=== PATIENT | female | born 1975 | race Caucasian/White ===

== ENCOUNTER → 2019-12-11 16:33 | Outpatient (CLI) | payer MEDICAID, SELFPAY ==
--- NOTE | 2019-12-11 | XR_ITS ---
PROCEDURE: XR ANKLE WT BEARING RT MIN 3V CLINICAL INDICATION: R DROPFOOT DEFORMITY, OSTEOARTHRITIS The COMPARISON: XR FOOT WT BEARING RT 3V from 12/11/2019 FINDINGS: No fracture or dislocation. No lytic or blastic change. There is normal mineralization. There are mild hypertrophic changes of the medial malleolus with some accessory ossification along the medial malleolus medially. Mild bony spurring is present at the anterior distal tibia. Small calcaneal spurs noted. There has been prior surgery of the foot with the longitudinal screw at the base of the 5th metatarsal. Prominent osteoarthritic changes are present at the 1st metatarsal tarsal joint. Anterior osteophytes are also present at the navicular cuneiform joint. Other findings:None. IMPRESSION: Degenerative changes as described above. Dictated by: Sav Fong MD 12/12/2019 07:38 Electronically signed by Sav Fong MD in [place] 12/12/2019 07:38
--- NOTE | 2019-12-11 | XR_ITS ---
PROCEDURE: XR ANKLE WT BEARING LT MIN 3V CLINICAL INDICATION: Foot drop COMPARISON: No exams were available for comparison FINDINGS: No fracture or dislocation. No lytic or blastic change. There is normal mineralization. Mildly prominent bony hypertrophic changes are present at the anterior distal tibia with a separate ossification along the joint space at this region anteriorly measuring approximately 3-4 mm and may be due to a loose body. Other findings:Mild prominent bony calcaneal spur. This IMPRESSION: No acute finding. Degenerative changes of the ankle with possible loose body anteriorly Dictated by: Sav Fong MD 12/12/2019 07:35 Electronically signed by Sav Fong MD in [place] 12/12/2019 07:35
--- NOTE | 2019-12-11 16:43 | XR_ITS ---
PROCEDURE: XR CHEST 2V CLINICAL HISTORY: HX OF HIGH BLOOD PRESSURE Preop study for orthopedic surgery. COMPARISON: No exams were available for comparison FINDINGS: No acute bony abnormalities. The cardiomediastinal silhouette and pulmonary vascularity are within normal limits. The lungs are clear without infiltrates, suspicious nodules, or pleural effusions. There is mildly increased thoracic kyphosis. Multilevel mild degenerative thoracic spondylosis. IMPRESSION: 1. No acute findings. Dictated by: Desmond Guevara 12/11/2019 17:08 Electronically signed by Desmond Guevara in [place] 12/11/2019 17:08
--- NOTE | 2019-12-11 17:16 | ECG_ITS ---
APPROVED REPORT Exam: Resting ECG HR:50 bpm ECG Measurements Heart Rate 50 AXES LA 144 P 76 QRSd 86 QRS 46 QT 500 T 42 QTc 455 <Conclusion> Sinus bradycardia Otherwise normal ECG Electronically signed by : Nic Light, 12/16/2019 21:22:33
[2019-12-11 17:26] LABS: Basophils % 0.4 % (0.1-2.0); Eosinophils # 0.2 K/mm3 (0.0-0.4); Eosinophils % 2.6 % (0.1-12.0); Hematocrit 39.7 % (37.0-47.0); Hemoglobin 13.5 g/dL (12.2-16.2); Lymphocytes # 1.9 K/mm3 (0.7-4.5); Lymphocytes % 28.7 % (10-50); Mean Corpuscular HGB Conc 34.2 g/dL (31.8-35.4); Mean Corpuscular Hemoglobin 32.4 pg (27.0-31.2); Mean Corpuscular Volume 94.7 fl (81-99); Mean Platelet Volume 8.2 fl (7.4-10.4); Monocytes # 0.4 K/mm3 (0.1-1.0); Monocytes % 6.1 % (1.7-9.3); Neutrophils # 4.1 K/mm3 (1.8-7.8); Neutrophils % 62.2 % (37.0-80.0); Platelet Count 267 K/mm3 (142-424); Red Blood Count 4.19 M/mm3 (4.20-5.40); Red Cell Distribution Width 13.4 % (11.5-17.5); White Blood Count 6.5 K/mm3 (4.8-10.8)
[2019-12-11 17:53] LABS: INR 0.96 (0.9-1.1); Prothrombin Time 9.9 seconds (9.4-11.8)
[2019-12-11 19:11] LABS: Alanine Aminotransferase 28 U/L (12-78); Albumin Level 4.3 g/dl (3.5-5.0); Albumin/Globulin Ratio 1.5 (1.1-1.8); Alkaline Phosphatase 95 U/L (38-126); Anion Gap 13.3 mEq/L (5-15); Aspartate Amino Transferase 36 U/L (14-36); Bilirubin,Total 0.5 mg/dl (0.2-1.3); Blood Urea Nitrogen 10 mg/dl (7-17); Calcium 9.8 mg/dl (8.4-10.2); Carbon Dioxide 29 mmol/L (22.0-30.0); Chloride 100 mmol/L (98-107); Estimated Glomerular Filt Rate 110 ml/min (>60); GFR (African American) 133 ML/MIN (>60); Globulin 2.8 g/dL (1.3-3.2); Glucose 90 mg/dl (74-100); Potassium 4.3 mmoL/L (3.5-5.1); Sodium 138 mmol/L (136-145); Total Protein,Serum 7.1 g/dl (6.3-8.2)
[2019-12-11 19:17] LABS: C-Reactive Protein 5.8 mg/L (0-4)
[2019-12-11 19:28] LABS: 25-OH Vitamin D, Total 24.9 ng/mL (30-100)
[2019-12-11 22:06] LABS: Erythrocyte Sedimentation Rate 17 mm/hr (0-20)
== END ==
PROVIDERS: Visit Provider Podiatrist
DX: Z01.818 Encounter for other preprocedural examination (principal); M19.071 Primary osteoarthritis, right ankle and foot
CPT/HCPCS: 36415; 71046; 73610; 73630; 80053; 82306; 85025; 85610; 85651; 86140; 93005

== ENCOUNTER → 2020-01-01 14:22 | Outpatient (CLI) | payer MEDICAID, SELFPAY ==
[2020-01-01 15:11] LABS: Basophils % 0.5 % (0.1-2.0); Eosinophils # 0.1 K/mm3 (0.0-0.4); Eosinophils % 1.7 % (0.1-12.0); Hematocrit 42.9 % (37.0-47.0); Lymphocytes # 1.2 K/mm3 (0.7-4.5); Lymphocytes % 19.1 % (10-50); Mean Corpuscular HGB Conc 32.6 g/dL (31.8-35.4); Mean Corpuscular Hemoglobin 30.9 pg (27.0-31.2); Mean Corpuscular Volume 94.7 fl (81-99); Mean Platelet Volume 7.9 fl (7.4-10.4); Monocytes # 0.3 K/mm3 (0.1-1.0); Monocytes % 4.4 % (1.7-9.3); Neutrophils # 4.7 K/mm3 (1.8-7.8); Neutrophils % 74.4 % (37.0-80.0); Platelet Count 314 K/mm3 (142-424); Red Blood Count 4.53 M/mm3 (4.20-5.40); Red Cell Distribution Width 13.4 % (11.5-17.5); White Blood Count 6.3 K/mm3 (4.8-10.8)
[2020-01-01 15:33] LABS: HCG Qualitative, Serum Negative (Negative)
[2020-01-01 15:37] LABS: Alanine Aminotransferase 17 U/L (12-78); Albumin Level 4.4 g/dl (3.5-5.0); Albumin/Globulin Ratio 1.4 (1.1-1.8); Alkaline Phosphatase 105 U/L (38-126); Anion Gap 13.2 mEq/L (5-15); Aspartate Amino Transferase 29 U/L (14-36); Bilirubin,Total 0.5 mg/dl (0.2-1.3); Blood Urea Nitrogen 7 mg/dl (7-17); Calcium 10.2 mg/dl (8.4-10.2); Carbon Dioxide 31 mmol/L (22.0-30.0); Chloride 99 mmol/L (98-107); Erythrocyte Sedimentation Rate 21 mm/hr (0-20); Estimated Glomerular Filt Rate 110 ml/min (>60); GFR (African American) 133 ML/MIN (>60); Globulin 3.2 g/dL (1.3-3.2); Glucose 106 mg/dl (74-100); Potassium 4.2 mmoL/L (3.5-5.1); Sodium 139 mmol/L (136-145); Total Protein,Serum 7.6 g/dl (6.3-8.2)
[2020-01-01 15:42] LABS: C-Reactive Protein 5.5 mg/L (0-4)
[2020-01-01 15:48] LABS: Prothrombin Time 10.3 seconds (9.4-11.8)
[2020-01-01 15:54] LABS: 25-OH Vitamin D, Total 28.9 ng/mL (30-100)
[2020-01-01 17:53] LABS: Coronavirus 19 IgG Antibody Negative (Negative); Coronavirus 19 IgM Antibody Negative (Negative)
== END ==
PROVIDERS: Visit Provider Podiatrist
DX: Z01.818 Encounter for other preprocedural examination (principal); Z20.828 Contact with and (suspected) exposure to other viral communicable diseases
CPT/HCPCS: 36415; 80053; 82306; 84703; 85025; 85610; 85651; 86140; 86328; U0003

== ENCOUNTER 2020-01-02 08:11 | Observation (INO) | payer MEDICAID, SELFPAY ==
[2019-12-31 08:41] VITALS: BMI 33.4
[2020-01-02] VITALS (22 sets, daily range): BP systolic 118–152; BP diastolic 56–85; PULSE 59–89; RESP 16–20; TEMP 36.7–43; O2SAT 96–98
--- NOTE | 2020-01-02 07:29 | HMH.HP ---
*Admission Date: 01/02/20 *Chief complaint: R dropfoot, nerve damage *History of present illness: Ms. Jama is a 44 y/o female who presents for admission today post op right dropfoot reconstruction. She has been medically cleared by her PCP Dr. Yovani tucker in [facility]. Patient will be admitted for pain control, has a history of substance pain (narcotics) abuse. Attends and has permission from Drug Court/Pain doctor for pain mgmt by myself for narcotics post op. She sees Dr. Lia Sarah in [facility]. Patient will need DME, needs crutches and PT evaluation post op. Also recommend RKS. Patient does not smoke and is not on control. We discussed risk of DVT, blood clots and PE. Recommend Lovenox postoperatively x 6 weeks. [facility] History I have reviewed the patient's past medical history: Yes Medical History: Reports:: Anxiety, Depression Denies:: Cancer, Diabetes Mellitus Type 1, Diabetes Mellitus Type 2, Internal Pacemaker, MRSA, Seizures *Have you ever received a pneumonia vaccine?: No *Have you received a flu vaccine this season?: Yes Other Medical History: Reports: Arthritis, Other. Denies: Blood Transfusion Reaction Comment:: Right dropfoot Laterality Cases: Bilateral: Arthroscopy Knee Other Surgeries: Yes: Tubal Ligation, Other. No: Pacemaker Amputation: No Fractures: Yes (R foot) - *Social History Last grade of school completed: High school graduate Smoking Status: Never smoker Alcohol Intake: never Substance Use Type: denies use *Occupational Status:: unemployed Housing: house Household Members: children *Travel in the last 8 weeks: None - Psychiatric History Expresses thoughts of harming self/others: None Pschychiatric History:: Reports:: Anxiety Family Hx:: Hypertension Review of Systems - Review of Systems Review of systems:: pertinent systems reviewed and negative unless documented below - Constitutional Denies chills, Denies fatigue - Eyes Denies blind spots - ENT Reports poor balance - *Cardiovascular Denies chest pain, Denies shortness of breath - *Respiratory Denies cough, Denies shortness of breath - *Gastrointestinal Denies abdominal pain - *Genitourinary Denies abnormal periods - *Musculoskeletal Reports muscle weakness (RLE) - Integumentary/Breasts Denies hair loss, Denies wounds - *Neurologic Reports abnormal walking, Reports tingling/numbness/burning sensations - Endocrine Denies cold intolerance, Denies excessive sweating - Hematologic/Lymphatic Reports easy bruising - Allergic/Immunologic Reports GI upset with certain foods Meds Home Medications Medication Instructions Recorded Confirmed Type buspirone 10 mg tablet 10 mg PO BID 12/11/19 01/02/20 History gabapentin 800 mg tablet 800 mg PO TID PRN 12/11/19 01/02/20 History meloxicam 7.5 mg tablet 7.5 mg PO DAILY 12/11/19 01/02/20 History pantoprazole 40 mg tablet,delayed 40 mg PO DAILY 12/11/19 01/02/20 History release sertraline 50 mg tablet 50 mg PO DAILY 12/11/19 01/02/20 History enoxaparin 40 mg/0.4 mL 40 mg SQ QDAY 20 Days #8 ml 12/12/19 01/02/20 Rx subcutaneous syringe Docusate Sodium [Stool Softener] 100 mg PO DAILYP PRN 01/02/20 01/02/20 History Ergocalciferol (Vitamin D2) 50,000 unit PO WEEKLY 01/02/20 01/02/20 History [Vitamin D2] Ibuprofen 800 mg PO BID PRN 01/02/20 01/02/20 History Ondansetron [Zofran 4mg ODT] 4 mg PO Q6H PRN 01/02/20 01/02/20 History Tizanidine HCl [Zanaflex 4mg 4 mg PO TID PRN 01/02/20 01/02/20 History tab] lamoTRIgine [Lamotrigine] 100 mg PO DAILY 01/02/20 01/02/20 History Allergies Allergy/AdvReac Type Severity Reaction Status Date / Time sulfamethoxazole Allergy Verified 01/02/20 06:29 [From Bactrim] tramadol [From Ultram] Allergy Verified 01/02/20 06:29 trimethoprim [From Bactrim] Allergy Verified 01/02/20 06:29 Exam Vital signs and Labs for Last 24 Hours: Temp Pulse Resp BP Pulse Ox 98.0 F 59 L 1
--- NOTE | 2020-01-02 07:55 | HMH.ANESCL ---
[facility] Anesthesia Checklist - Patient Identification Patient Identification: Arm Band - Structural Data Admitted From: Home Planned Operative Procedure/s: right foot dropfoot reconstruction Consent for Planned Operative Procedure(s) Verified: Yes Verified Documents: Surgical Consent, History and Physical - NPO Status Verified Time NPO: 00:00 - Additional verifications Anesthesia Reactions: No Hx Blood Transfusions: No Blood Transfusion Reaction: No - Airway Assessment C-Spine Mobility Assessed: Yes (mp2) TMJ Mobility Assessed: Yes Dentition: Good Dentition - Neurological Assessment Level of Consciousness: Awake, Alert - Anesthesia Plan Anesthesia Risk discussed: Yes Anesthesia Plan: Verified ASA Class: II Anesthesia Type: General w/block (Talked at length with pt about risks/benefits of nerve block including the fact that there is previous nerve damage involved. Pt verbalizes understanding of risks and elects to proceed with nerve block) [facility] History Medical History: Reports:: Anxiety, Depression, Gastroesophageal Reflux Disease(GERD) Denies:: Cancer, Diabetes Mellitus Type 1, Diabetes Mellitus Type 2, Internal Pacemaker, MRSA, Seizures *Have you ever received a pneumonia vaccine?: No *Have you received a flu vaccine this season?: Yes Other Medical History: Reports: Arthritis, Other. Denies: Blood Transfusion Reaction Anesthesia experience/problems:: nac Laterality Cases: Bilateral: Arthroscopy Knee Other Surgeries: Yes: Cholecystectomy, Tubal Ligation, Other. No: Pacemaker Amputation: No Fractures: Yes (R foot) - *Social History Last grade of school completed: High school graduate Smoking Status: Never smoker Alcohol Intake: never Substance Use Type: denies use *Occupational Status:: unemployed Housing: house Household Members: children *Travel in the last 8 weeks: None - Psychiatric History Expresses thoughts of harming self/others: None Pschychiatric History:: Reports:: Anxiety, Depression Family Hx:: Hypertension
--- NOTE | 2020-01-02 08:32 | HMH.PHAINT ---
MEDICATION RECONCILIATION COMPLETED ON PATIENT USING EXTERNAL FILL HISTORY FROM PHARMACY, NOTE FROM DR. BERNAL, AND AMARJIT REPORT FOR GABAPENTIN/SUBOXONE DOSES. -NICOLE PARKER, KENDELLD
[2020-01-02 13:39] LABS: Microscopic,Cath URINE MICROSCOPIC (MICROSCOPIC)
[2020-01-02 13:59] LABS: Appearance,Urine/Cath CLEAR (Clear); Bilirubin,Cath Negative (Negative); Blood, Urine/Cath Negative (Negative); Color,Urine/Cath YELLOW (Yellow); Glucose,Urine/Cath (UA) Negative (Negative); Ketones,Urine/Cath Negative (Negative); Leukocyte Esterase,Cath Negative (Negative); Nitrate,Cath Negative (Negative); Protein,Urine/Cath Negative (Negative); Specific Gravity, Urine/Cath <= 1.005 (1.005-1.030); Urobilinogen,Cath 0.2 EU/dl (0.2)
[2020-01-02 14:18] LABS: Bacteria,Urine/Cath TRACE /lpf; RBC,Urine/Cath Occasional # /hpf (0-3)
--- NOTE | 2020-01-02 14:32 | XR_ITS ---
PROCEDURE: XR ANKLE RT 2V CLINICAL INDICATION: FUSION COMPARISON: CR XR ANKLE WT BEARING RT MIN 3V from 12/11/2019 FINDINGS: Fluoro time 3 minutes. Multiple images are submitted during the fusion procedure with osteotomy the distal tibia fibula and superior talus. Anterior distal tibia bone plate 2 calcaneal talar screws, metatarsal tarsal clips are placed along with K-wires in the 2nd and 3rd digit. A clip is also present at the proximal aspect of the 1st proximal phalanx. Limited images show good alignment. IMPRESSION: Postsurgical changes with good alignment Dictated by: Sav Fong MD 01/02/2020 15:55 Sav Fong MD in [place] 01/02/2020 15:55
--- NOTE | 2020-01-02 15:54 | P.PN_ITS ---
[facility] Anesthesia Record Part I Intake, IV Amount: 2,500 Estimated blood loss (mL): 30 Urine output (mL): 1,000 Blood Pressure: 129/73 SaO2: 97 Pulse Rate: 74 Respiratory Rate: 16 Temperature: 98.5 F Patient is:: Drowsy, Stable Stable to PACU at:: 15:50
--- NOTE | 2020-01-02 16:00 | XR_ITS ---
PROCEDURE: XR CALCANEUS RT MIN 2V CLINICAL INDICATION: Post op right dropfoot COMPARISON: CR XR ANKLE RT MIN 3V from 01/02/2020 CR XR FOOT RT MIN 3V from 01/02/2020 FINDINGS: Status post fusion of the ankle joint with osteotomy of the talar dome and distal tibia and distal fibula. Anterior bone plate is present at the distal tibia with a curved component at the talus. There are 2 screws within the calcaneus 1 extending into the talus and 1 extending through the talus into the distal tibia region. The screw within the mid aspect of the talus has a zone of lucency around it which is possibly postsurgical. There are 2 large himanshu overlying the 1st metatarsal tarsal junction. There are K-wires within the 2nd and 3rd phalanges. There is a stable also at the proximal aspect of the proximal phalanx of the great toe with a nondisplaced fracture at this area. There is good alignment. There is a longitudinal screw through the base of the 5th metatarsal which was present before the surgery. IMPRESSION: Status post ankle and midfoot fusion as described above Dictated by: Sav Fong MD 01/02/2020 16:55 Sav Fong MD in [place] 01/02/2020 16:55
--- NOTE | 2020-01-02 16:34 | PC.NURSE ---
1600-xray at bedside
--- NOTE | 2020-01-02 17:29 | PC.NURSE ---
PATIENT IS NOT NPO, ENTRY ERROR PER MYSELF. ORDER STOPPED.
--- NOTE | 2020-01-02 17:34 | HMH.OPNOTE ---
Date of procedure: 01/02/20 Pre-op Diagnosis:: 1. Right drop foot deformity 2. Right osteoarthritis ankle and foot 3. Right acquired equinovarus deformity 4. Retained orthopedic hardware 5. Impingement of right ankle joint 6. Right plantarflexed 1st ray 7. Right foot, ankle synovitis 8. Right acquired hammertoes 9. Right hallux interphalangeus 10. Right previous 5th metatarsal fracture ORIF: retained screw 11. Right foot, ankle pain and weakness 12. Calcaneal spur Post-op Diagnosis:: Same Procedure performed:: 1. Right dropfoot reconstruction 2. Right ankle arthrodesis 3. Right subtalar joint arthrodesis 4. Right tendo Achilles lengthening 5. Right peroneal tendon debridement and longus to brevis anastomosis, tendon transfer 5. Right 1st tarsal metatarsal arthrodesis 6. Right soft tissue (posterior capsule) release 7. Right tibialis anterior tendon debridement, split tibialis anterior tendon transfer 8. Right posterior tibial tendon debridement and repair 9. Right ankle and foot synovectomy 10. Right dorsiflexion wedge osteotomy (1st metatarsal DFWO) 11. Right hammertoe repair, PIPJ arthrodesis 2-3 12. Right Arturo osteotomy 13. Right calcaneal autograft harvest 14. Right application of amniotic graft 15. Right application of bone graft 16. Right application of posterior splint Surgeon:: Astrid Rosa DPM Research Interviewer(s):: Tereza Apodaca [employer]:: Rubio Monge Anesthesia: GETA, regional (Right LE pop, saph nerve block) Estimated blood loss (mL): 30 Clinical Note:: Ms. Jama is a 44 y/o female who presents for right dropfoot reconstruction. The patient sustained a work riding accident when she was 12 years old which resulted in damage to the right hip and nerve. Plans were made for her to have a hip replacement but it was recommended she had the ankle and foot fixed prior to the hip surgery. Preoperative imaging reviewed and discussed with the patient. She also underwent a nerve conduction study with Dr. Swapna Dawn 12/24/2019 for surgical planning. After a long discussion with the patient in regards to the conservative versus surgical treatment for dropfoot deformity, the patient has elected to proceed with surgery because they have failed conservative treatment and continue to have pain and worsening symptoms affecting daily activities. The patient has been instructed on the planned procedure, all risk versus benefits of the procedure discussed. These include but are not limited to: bleeding, infection, temporary or permanent nerve and blood vessel damage, need for further surgery, delay in healing of soft tissue or bone, tendon re-rupture, failure of bones to heal, non-union, mal-union, failure of the implant, weakness, muscle atrophy, fractures, prolonged pain and recovery, CRPS/RSD, DVT and anesthetic complications including issues with blood pressure and even . We discussed increased risk of tendon transfer failure, nonunion, delayed union. We discussed possible limb shortening, post op limb, gait changes, need for physical therapy, boot, brace and possible custom brace post operatively. No guarantees were given. All questions fully answered. The patient verbalized understanding and agreed to proceed with surgery. Written consent was obtained. Necessary labs and pre-op testing ordered: CBC, CMP, EKG, CXR, vitamin D. Patient will need DME, recommend RKS. Patient does not smoke and is not on control. We discussed risk of DVT, blood clots and PE. Recommend Lovenox postoperatively x3-6 weeks. We discussed due to the length of surgery and anesthesia she will be admitted 23-hour observation and have PT gait training prior to discharge home. She will need Rx for pain ([place] or Percocet), muscle relaxer prior to d/c home. e-Rx given for Zofran, Motrin, vitamin D, Lovenox on 12/12/19. We discussed in great detail her history of substance abuse and postop pain management. She sees Dr. Lia Sarah in [facility]. Patient has an appointm
--- NOTE | 2020-01-02 18:43 | HMH.HP ---
*Admission Date: 01/02/20 *Chief complaint: Postop right foot drop reconstruction *History of present illness: Ms. Jama is a 44 y/o female who presents for admission today post op right dropfoot reconstruction. She has been medically cleared by her PCP Dr. Yovani tucker in [facility]. Patient will be admitted for pain control, has a history of substance pain (narcotics) abuse. Attends and has permission from Drug Court/Pain doctor for pain mgmt by myself for narcotics post op. She sees Dr. Lia Sarah in [facility]. Patient will need DME, needs crutches and PT evaluation post op. Also recommend RKS. Patient does not smoke and is not on control. We discussed risk of DVT, blood clots and PE. Recommend Lovenox postoperatively x 6 weeks. The above from Dr. Rosa. The patient reports a horse riding accident when she was 12 years old. 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 She plans to have hip surgery but it was felt that she should have reconstruction of the right foot abnormality before her hip was replaced. She underwent hip surgery at the age of 12 at the time of the injury. She is also had foot fractures 3 times and has had arthroscopic surgery of the foot and of the knees. [facility] History I have reviewed the patient's past medical history: Yes Medical History: Reports:: Anxiety, Depression (Her 58-year-old fianc? 6 days ago from complications of CML.), Gastroesophageal Reflux Disease(GERD) Denies:: Cancer, Diabetes Mellitus Type 1, Diabetes Mellitus Type 2, Internal Pacemaker, MRSA, Seizures *Have you ever received a pneumonia vaccine?: No *Have you received a flu vaccine this season?: No Other Medical History: Reports: Arthritis, Other. Denies: Blood Transfusion Reaction Anesthesia experience/problems:: nac Laterality Cases: Bilateral: Arthroscopy Knee Other Surgeries: Yes: Cholecystectomy, Tubal Ligation (1999), Other. No: Pacemaker Amputation: No Fractures: Yes (R foot) - *Social History Last grade of school completed: 11th or 12th Smoking Status: Former smoker (Quit 3 years ago) Tobacco Type: cigarettes Smoking End Date: 2016 Alcohol Intake: never Substance Use Type: denies use, former substance user, opiates, painkillers *Occupational Status:: unemployed Housing: house Household Members: children (19-year-old son 24-year-old daughter 3-year-old grandchild) *Travel in the last 8 weeks: None - Psychiatric History Expresses thoughts of harming self/others: None Pschychiatric History:: Reports:: Anxiety, Depression Family Hx:: Hypertension Review of Systems - Constitutional Denies anorexia, Denies body ache(s), Denies chills - Eyes Denies blurry vision - ENT Denies abnormal hearing, Denies neck lump, Denies neck pain - *Cardiovascular Denies chest pain - *Respiratory Denies chest congestion, Denies cough - *Gastrointestinal Denies abdominal pain - *Genitourinary Denies abnormal vaginal bleeding - *Musculoskeletal Reports abnormal walking, Reports joint pain, Reports back pain (2 bulging disks) - Integumentary/Breasts Denies bleeding lesions, Denies yellowing of the skin, Denies unusual bruising - *Neurologic Reports abnormal walking, Reports unsteadiness, Reports tingling/numbness/burning sensations - Psychiatric Reports depression - Hematologic/Lymphatic Reports easy bruising - Allergic/Immunologic Reports GI upset with certain foods Meds Home Medications Medication Instructions Recorded Confirmed Type buspirone 10 mg tablet 10 mg PO BID 12/11/19 01/02/20 History gabapentin 800 mg tablet 800 mg PO TID PRN 12/11/19 01/02/20 History meloxicam 7.5 mg tablet 7.5 mg PO DAILY 12/11/19 01/02/20 History pantoprazole 40 mg tablet,delayed 40 mg PO DAILY 12/11/19 01/02/20 History release sertraline 50 mg tablet 50 mg PO DAILY 12/11/19 01/02/20 History bup
--- NOTE | 2020-01-02 18:46 | HMH.ANESII ---
[facility] Anesthesia Record Part II Discharge Time: 16:30 Destination: Medical Surgical Department PACU nurse assessment reviewed?: Yes Patient Condition:: Good Anesthesia Complications:: None Swallowing reflex intact?: Yes Cyanosis?: No Blood Pressure: 133/85 Pulse Rate: 68 Temperature: 98.7 F Mental Status: Alert & Oriented Pain level:: 5 (back/hip) Nausea and/or vomitting:: None Intake, IV Amount: 0
--- NOTE | 2020-01-02 20:12 | PC.NURSE ---
Pt states that she is no longer taking suboxone and hasn't for two weeks. Pt is alert and oriented and able to make needs known. Indwelling cath draining to gravity. Dsg to R leg mustapha, L scud in place. Have encouraged elevation.Lungs cta. Have medicated per jul. Family member at bedside and CB in reach.
[2020-01-03 00:30] VITALS: BP 113/70; PULSE 69; RESP 18; TEMP 37.3; O2SAT 95
[2020-01-03 03:31] VITALS: BP 110/52; PULSE 66; RESP 16; TEMP 37.5; O2SAT 99
--- NOTE | 2020-01-03 04:25 | PC.NURSE ---
A&OX4. PT TOLERATING RA WELL T/O SHIFT. PT TURNING IN BED MULTIPLE TIMES T/O SHIFT ON HER OWN. PT HAS C/O LOWER BACK PAIN T/O SHIFT, REQUESTING PRN PAIN MED PER MAR. ON REASSESSMENT, PT RESTS IN BED FOR A WHILE BUT PAIN COMES BACK. PT HAS HAD NO C/O PAIN IN HER R ANKLE. DRESSING PRESENT TO R ANKLE, CDI. ANKLE ELEVATED ON PILLOW T/O SHIFT, POLAR PACK IN PLACE. PT USING IS T/O SHIFT WHILE AWAKE. PT HAS TOLERATED SNACKS WELL. F/C PRESENT DRAINING BRIGHT YELLOW URINE. NO OTHER C/O THUS FAR. VSS WILL CONTINUE TO MONITOR.
[2020-01-03 05:00] VITALS: BMI 34.3
[2020-01-03 06:16] LABS: Eosinophils # 0.1 K/mm3 (0.0-0.4); Eosinophils % 0.7 % (0.1-12.0); Hematocrit 34.7 % (37.0-47.0); Hemoglobin 11.4 g/dL (12.2-16.2); Lymphocytes # 1.2 K/mm3 (0.7-4.5); Lymphocytes % 8.4 % (10-50); Mean Corpuscular HGB Conc 32.9 g/dL (31.8-35.4); Mean Corpuscular Hemoglobin 31.4 pg (27.0-31.2); Mean Corpuscular Volume 95.2 fl (81-99); Mean Platelet Volume 8.1 fl (7.4-10.4); Monocytes # 1.2 K/mm3 (0.1-1.0); Monocytes % 8.4 % (1.7-9.3); Neutrophils # 11.6 K/mm3 (1.8-7.8); Neutrophils % 82.4 % (37.0-80.0); Platelet Count 267 K/mm3 (142-424); Red Blood Count 3.64 M/mm3 (4.20-5.40); Red Cell Distribution Width 13.6 % (11.5-17.5); White Blood Count 14.1 K/mm3 (4.8-10.8)
[2020-01-03 06:24] LABS: Chloride 104 mmol/L (98-107)
[2020-01-03 06:25] LABS: Potassium 3.8 mmoL/L (3.5-5.1); Sodium 139 mmol/L (136-145)
[2020-01-03 06:27] LABS: Alanine Aminotransferase 13 U/L (12-78); Albumin Level 3.5 g/dl (3.5-5.0); Albumin/Globulin Ratio 1.3 (1.1-1.8); Alkaline Phosphatase 60 U/L (38-126); Anion Gap 9.8 mEq/L (5-15); Aspartate Amino Transferase 21 U/L (14-36); Bilirubin,Total 0.4 mg/dl (0.2-1.3); Blood Urea Nitrogen 9 mg/dl (7-17); Carbon Dioxide 29 mmol/L (22.0-30.0); Creatinine Clearance Estimated 198 mL/min (50-200); Estimated Glomerular Filt Rate 110 ml/min (>60); GFR (African American) 133 ML/MIN (>60); Globulin 2.8 g/dL (1.3-3.2); Total Protein,Serum 6.3 g/dl (6.3-8.2)
[2020-01-03 06:28] LABS: Glucose 145 mg/dl (74-100)
--- NOTE | 2020-01-03 06:45 | HMH.DCSUM ---
General - General Admission date:: 01/02/20 Discharge date: 01/03/20 HPI HPI: Ms. Jama is a 44 y/o female who presents for admission today post op right dropfoot reconstruction. She has been medically cleared by her PCP Dr. Yovani tucker in [facility]. Patient will be admitted for pain control, has a history of substance pain (narcotics) abuse. Attends and has permission from Drug Court/Pain doctor for pain mgmt by myself for narcotics post op. She sees Dr. Lia Sarah in [facility]. Patient will need DME, needs crutches and PT evaluation post op. Also recommend RKS. Patient does not smoke and is not on control. We discussed risk of DVT, blood clots and PE. Recommend Lovenox postoperatively x 6 weeks. Hospital Course Hospital Course: Patient had a relatively uneventful postoperative course. This morning she was lying comfortably in bed. She states pain to the right lower extremity controlled. She does report some discomfort in her back from positioning. Patient states feeling is starting to return to the right lower extremity. She denies N/V, F/C, SOB/CP. Plan for a session of PT this am prior to discharge for gait training, dispensing crutches. Recommended a rolling knee scooter as well. Objective Vital signs: Temp Pulse Resp BP Pulse Ox 99.5 F 66 16 110/52 L 99 01/03/20 03:31 01/03/20 03:31 01/03/20 03:31 01/03/20 03:31 01/03/20 03:31 no acute distress, obese - *Routine HEENT Exam Head: Present: normocephalic Eye: Present: EOMI ENT: Present: mucous membranes moist - *Routine Neck Exam Present: supple - *Routine Respiratory Exam Present: accessory muscle use - *Routine Cardiovascular Exam Present: RRR - *Routine Abdominal Exam Present: soft - *Routine Rectal Exam Patient deferred: visual exam - *Routine Exam Patient deferred: external exam - *Routine Extremities Exam Present: pulses intact, normal capillary refill. Absent: calf tenderness - Routine Back/Spine/Pelvis Exam Back/Spine: Present: muscle spasm, pain with rotation - *Routine Skin Exam Present: intact, warm - *Routine Neurological Exam Present: alert, oriented X3, moving all extremities - Routine Psychiatric Exam Present: normal affect - Detailed Lower Extremity Exam Comments: The right lower extremity splint and dressing is clean dry and intact. Capillary fill time within normal limits. Light touch sensation decreased secondary to nerve block. Motor function intact but decreased secondary to nerve block. No calf or thigh pain noted bilaterally. Patient complains of pain with rotation to the lower back, likely positional. Results Labs on day of discharge: Labs from last 24 hours 01/03/20 01/02/20 06:00 07:55 WBC 14.1 H D RBC 3.64 L Hgb 11.4 L Hct 34.7 L MCV 95.2 MCH 31.4 H MCHC 32.9 RDW 13.6 Plt Count 267 MPV 8.1 Neut % (Auto) 82.4 H Lymph % (Auto) 8.4 L [place] % (Auto) 8.4 Eos % (Auto) 0.7 Baso % (Auto) 0.0 L Neut # (Auto) 11.6 H Lymph # (Auto) 1.2 [place] # (Auto) 1.2 H Eos # (Auto) 0.1 Baso # (Auto) 0.0 Urine Color Yellow Urine Appearance Clear Urine pH 6.0 Ur Specific [place] <= 1.005 Urine Protein Negative Urine Glucose (UA) Negative Urine Ketones Negative Urine Blood Negative Urine Nitrate Negative Urine Bilirubin Negative Urine Urobilinogen 0.2 Ur Leukocyte Esterase Negative Urine RBC Occasional Urine WBC 3-5 Ur Squamous Epith Cells 10-20 Urine Bacteria Trace - Additional Comments Post operative x-rays 3 views right ankle, foot and calc axial reviewed. Hardware intact with no evidence of displacement. Adequate reduction of arthritis and dropfoot deformity DS: Diagnosis - Discharge Diagnosis (1) Acquired equinovarus deformity of right foot Status: Chronic (2) Dropfoot Status: Chronic (3) Osteoarthritis of right ankle and foot Status: Chronic
[2020-01-03 06:59] LABS: Calcium 9.1 mg/dl (8.4-10.2)
--- NOTE | 2020-01-03 07:19 | P.CONPHA_ITS ---
[facility] Pharmacy VTE Monitoring - Patient Demographics Admission date: 01/02/20 Report Date: 01/03/20 Time: 07:00 Allergies/Adverse Reactions: Patient Allergies sulfamethoxazole [From Bactrim] Allergy (Verified 01/02/20 06:29) tramadol [From Ultram] Allergy (Verified 01/02/20 06:29) trimethoprim [From Bactrim] Allergy (Verified 01/02/20 06:29) Height: 1.73 m Weight: 102.739 kg Patient Problems: Current Active Problems Acquired equinovarus deformity of right foot (Chronic) Avascular necrosis of bone of right hip (Acute) Arthropathy of right hip (Acute) Reactive depression (situational) (Acute) History of substance abuse (Acute) Nerve damage (Acute) History of foot surgery (Acute) Low back pain (Acute) - VTE Risk Labs: VTE Related Lab Results Hgb 11.4 g/dL (12.2-16.2) L 01/03/20 06:00 Hct 34.7 % (37.0-47.0) L 01/03/20 06:00 Plt Count 267 K/mm3 (142-424) 01/03/20 06:00 BUN 9 mg/dl (7-17) D 01/03/20 06:00 Creatinine 0.60 mg/dl (0.52-1.04) 01/03/20 06:00 Estimated Creat Clear 198 mL/min (50-200) 01/03/20 06:00 Was VTE Risk Assessment Performed: Yes VTE Score: 4 VTE Risk Level: Low Risk Clinical Trial Participant: No - Prophylaxis VTE Prophylaxis Ordered?: Yes Types of VTE Prophylaxis: TEDS Knee High (unaffected leg)
[2020-01-03 07:45] VITALS: BP 127/61; PULSE 56; RESP 17; TEMP 37.2; O2SAT 99
--- NOTE | 2020-01-03 08:54 | PC.NURSE ---
PT @ BS and meds to bed form signed
--- NOTE | 2020-01-03 09:40 | PC.NURSE ---
IV and mayorga discontinued by nursing executive. Instructor is Tereza Smith with [facility]. I completed discharge teaching as well as post op surgery teaching. Pt had question regarding when to start Lovenox injection. Called Dr. Rosa's office and spoke to Shiraz. He collaborated with Dr. Rosa, who reports that pt is to start Lovenox injections today when she gets home. Demonstrated to pt on how in give self injections.
--- NOTE | 2020-01-03 09:50 | HMH.PTEV ---
Physical Therapy Evaluation Rehab PT IP Evaluation Start: 01/02/20 14:50 Freq: ONCE Status: Active Protocol: Document 01/03/20 09:00 PHOWESLEY (Rec: 01/03/20 09:50 PHORNE [id number]) Subjective/History History History 44 yowf adm to [facility] for R foot surgery. She is independent with all mobility and ambulation prior to admit, no stairs at home. Subjective Subjective Pt reports she feels good, R foot remains numb. Rehab PT IP Eval Objective Appearance Patient Behavior Appropriate Patient Orientation Person,Place,Time Difficulty following instructions none Speech Pattern Clear Ambulation Patient Able to Ambulate Yes Ambulation Observation IP General Gait Pattern Observation Decrease Weight Bear (R) Ambulation Distance (feet) 20 Ambulation Assistive Device Axillary Crutches Ambulation Ability Supervision/Stand by Balance Ability to Arise Able, w/o using arms Sitting Balance Steady, safe Standing Balance Narrow stance w/o support Dynamic Sitting Balance Ability Normal Dynamic Standing Balance Ability Normal Transfers Bed Transfer Ability Independent Chair Transfer Ability Independent Sit to Stand Bed Transfer Ability Independent Sit to Stand Chair Transfer Ability Independent ROM All Extremities PT ROM Status WFL Abnormal ROM Comment except R ankle NT MMT All Extremities PT MMT WFL Abnormal MMT Grade except R ankle NT Rehab PT IP prob,goals,plan Problems Date of Evaluation: 01/03/20 Discharge Plan PT Discharge Plan Pt is appropriate to D/C to home with appropriate DME, crutch training performed and pt justus well without difficulty . G -code Required No Eval Complexity Eval Charge Codes 37340 - Moderate Complexity PHYSICIAN CERTIFICATION: I certify the specified therapy services for Monalisa Jama are required, authorized, and reviewed every 30 days.
--- NOTE | 2020-01-03 11:05 | PC.NURSE ---
spoke with Neha in the speciality clinic. Informed her that pt was eager to leave this morning. Pt left hospital at 1017. She did not receive her 3rd dose of IV postop abx that was scheduled at 1400. Neha reports that she will give message to Dr. Rosa.
== END 2020-01-03 10:20 | disposition home or self-care (01) ==
LOC: 2ND 08:12
PROVIDERS: Admitting Provider Podiatrist; PCP Family Medicine; Visit Provider Podiatrist
PROC: (CPT 28008; principal; 2020-01-02 07:30)
DX: M19.071 Primary osteoarthritis, right ankle and foot (principal); M20.41 Other hammer toe(s) (acquired), right foot; M67.01 Short Achilles tendon (acquired), right ankle; M21.371 Foot drop, right foot; M66.174 Rupture of synovium, right foot; M21.171 Varus deformity, not elsewhere classified, right ankle; M21.541 Acquired clubfoot, right foot; Z88.1 Allergy status to other antibiotic agents; Z79.899 Other long term (current) drug therapy
CPT/HCPCS: 28262; 28008; 28285 ×2; C5275; 36415; 73600; 73610; 73630; 73650; 80053; 81001; 85025; 96374; 97162; C1713; C1734; C1762; C1776; G0378; J2405; J2710; Q4211

== ENCOUNTER → 2020-01-29 14:12 | Outpatient (CLI) | payer MEDICAID, SELFPAY ==
--- NOTE | 2020-01-29 14:17 | XR_ITS ---
PROCEDURE: XR ANKLE WT BEARING RT MIN 3V CLINICAL INDICATION: post-op COMPARISON: CR XR ANKLE WT BEARING LT MIN 3V from 12/11/2019 CR XR ANKLE WT BEARING RT MIN 3V from 12/11/2019 CR XR ANKLE RT MIN 3V from 01/02/2020 FINDINGS: There is a cast in place. No change in the prior ankle fusion with anterior bone plate. Status post talocalcaneal fusion with 2 screws from the calcaneus. The most posterior screw extends along the anterior aspect of the distal tibia. IMPRESSION: Good alignment status post ankle joint and subtalar fusion Dictated by: Sav Fong MD 01/29/2020 17:50 Sav Fong MD in [facility] 01/29/2020 17:50
--- NOTE | 2020-01-29 14:17 | XR_ITS ---
PROCEDURE: XR FOOT WT BEARING RT 3V CLINICAL INDICATION: post-op Follow-up surgery COMPARISON: CR XR FOOT WT BEARING RT 3V from 12/11/2019 CR XR FOOT RT MIN 3V from 01/02/2020 FINDINGS: Status post 1st metatarsal tarsal fusion. Longitudinal screw is present in the base of the 5th metatarsal. Status post pinning of the 2nd and 3rd phalanges the. A staple is present along the proximal aspect of the proximal phalanx of the great toe stabilizing a nondisplaced transverse fracture. There are osteoarthritic changes at the cuneiform tarsal junction. Other findings:None. IMPRESSION: Extensive postsurgical changes as described above overall not significantly changed Dictated by: Sav Fong MD 01/29/2020 17:52 Sav Fong MD in [facility] 01/29/2020 17:52
== END ==
PROVIDERS: PCP Family Medicine; Visit Provider Podiatrist
DX: Z98.890 Other specified postprocedural states (principal); M79.671 Pain in right foot; M25.571 Pain in right ankle and joints of right foot
CPT/HCPCS: 73610; 73630

== ENCOUNTER → 2020-02-12 14:17 | Outpatient (CLI) | payer MEDICAID, SELFPAY ==
--- NOTE | 2020-02-12 14:21 | XR_ITS ---
PROCEDURE: XR ANKLE WT BEARING RT MIN 3V CLINICAL INDICATION: post-op Follow-up surgery COMPARISON: CR XR ANKLE WT BEARING LT MIN 3V from 12/11/2019 CR XR ANKLE WT BEARING RT MIN 3V from 12/11/2019 CR XR ANKLE RT MIN 3V from 01/02/2020 CR XR ANKLE WT BEARING RT MIN 3V from 01/29/2020 FINDINGS: The splint has been removed. Status post talocalcaneal fusion. There does not appear to be complete bony fusion at this time. Status post talocalcaneal fusion with incomplete fusion of the joint. One of the calcaneal screws appears to extend into the anterior aspect of the distal tibia. There appears to been a prior osteotomy at the distal aspect of the fibula. IMPRESSION: No change status post ankle and hindfoot fusion as described above with incomplete fusion. Dictated by: Sav Fong MD 02/12/2020 15:08 Sav Fong MD in [facility] 02/12/2020 15:08
--- NOTE | 2020-02-12 14:21 | XR_ITS ---
PROCEDURE: XR FOOT WT BEARING RT 3V CLINICAL INDICATION: post-op COMPARISON: CR XR FOOT WT BEARING RT 3V from 12/11/2019 CR XR FOOT RT MIN 3V from 01/02/2020 CR XR FOOT WT BEARING RT 3V from 01/29/2020 FINDINGS: The cast has been removed. No change in the medial staple at the proximal aspect of the proximal phalanx of the great toe. Status post osteotomy at this area with persistent fracture line. Status post fusion the 1st metatarsal tarsal junction. Pins remain in place at the 2nd and 3rd toes and at the base of the 5th metatarsal. Osteoarthritic changes are present at the cuneiform metatarsal junction and at the talonavicular junction. There is mild soft tissue swelling along the dorsal aspect of the foot. Please see ankle report for ankle and hindfoot finding IMPRESSION: Postsurgical changes which are stable compared to the previous exam Dictated by: Sav Fong MD 02/12/2020 15:10 Sav Fong MD in [facility] 02/12/2020 15:10
== END ==
PROVIDERS: PCP Family Medicine; Visit Provider Podiatrist
DX: Z98.890 Other specified postprocedural states (principal); M21.541 Acquired clubfoot, right foot; M21.371 Foot drop, right foot
CPT/HCPCS: 73610; 73630

== ENCOUNTER → 2020-02-28 13:47 | Outpatient (CLI) | payer MEDICAID, SELFPAY ==
--- NOTE | 2020-02-28 13:51 | XR_ITS ---
PROCEDURE: XR ANKLE WT BEARING RT MIN 3V CLINICAL INDICATION: post-op Follow-up surgery COMPARISON: CR XR ANKLE WT BEARING RT MIN 3V from 12/11/2019 CR XR ANKLE RT MIN 3V from 01/02/2020 CR XR ANKLE WT BEARING RT MIN 3V from 01/29/2020 CR XR FOOT WT BEARING RT 3V from 02/12/2020 CR XR ANKLE WT BEARING RT MIN 3V from 02/12/2020 CR XR FOOT WT BEARING RT 3V from 02/28/2020 FINDINGS: Status post ankle and talocalcaneal fusion. No change in the bony hardware with good alignment. Status post 1st metatarsal tarsal fusion. Status post clip along the osteotomy site of the proximal phalanx of the 1st toe. The pins at the 2nd and 3rd toe been removed. There remains a screw in the proximal aspect of the 5th metatarsal. Bony hypertrophic changes are present at the metatarsal tarsal joint dorsally. There is mild generalized soft tissue swelling. IMPRESSION: No change with good alignment in the extensive postsurgical changes as described above Dictated by: Sav Fong MD 02/28/2020 14:25 Sav Fong MD in [facility] 02/28/2020 14:25
== END ==
PROVIDERS: PCP Family Medicine; Visit Provider Podiatrist
DX: M19.071 Primary osteoarthritis, right ankle and foot (principal); Z98.890 Other specified postprocedural states
CPT/HCPCS: 73610; 73630

== ENCOUNTER → 2020-03-20 13:40 | Outpatient (CLI) | payer MEDICAID, SELFPAY ==
--- NOTE | 2020-03-20 13:44 | XR_ITS ---
PROCEDURE: XR FOOT WT BEARING RT 3V CLINICAL INDICATION: post-op Follow-up surgery COMPARISON: CR XR FOOT RT MIN 3V from 01/02/2020 CR XR FOOT WT BEARING RT 3V from 01/29/2020 CR XR FOOT WT BEARING RT 3V from 02/12/2020 CR XR FOOT WT BEARING RT 3V from 02/28/2020 CR XR ANKLE WT BEARING RT MIN 3V from 02/28/2020 CR XR ANKLE WT BEARING RT MIN 3V from 03/20/2020 FINDINGS: Postsurgical changes as previously described at the proximal 1st phalanx, 1st metatarsal tarsal fusion, curved bone plate along the anterior distal tibia and talar region with fusion of the ankle joint. There is a screw in the tail 0 calcaneal and distal tibia region. There is incomplete bony fusion at the ankle. There has been fusion of the talocalcaneal joint with a screw present. There is pes planus with. There is bony sclerosis at the distal fibula. IMPRESSION: Overall no change in the postsurgical changes of the foot and ankle as described above Dictated by: Sav Fong MD 03/20/2020 15:25 Sav Fong MD in [facility] 03/20/2020 15:25
== END ==
PROVIDERS: PCP Family Medicine; Visit Provider Podiatrist
DX: Z98.890 Other specified postprocedural states (principal); M21.541 Acquired clubfoot, right foot; M21.371 Foot drop, right foot
CPT/HCPCS: 73610; 73630

== ENCOUNTER → 2020-07-22 16:05 | Outpatient (CLI) | payer MEDICAID, SELFPAY ==
--- NOTE | 2020-07-22 16:09 | XR_ITS ---
PROCEDURE: XR ANKLE WT BEARING RT MIN 3V CLINICAL INDICATION: postop, pain Follow-up surgery COMPARISON: CR XR ANKLE WT BEARING RT MIN 3V from 01/29/2020 CR XR ANKLE WT BEARING RT MIN 3V from 02/12/2020 CR XR ANKLE WT BEARING RT MIN 3V from 02/28/2020 CR XR FOOT WT BEARING RT 3V from 03/20/2020 CR XR ANKLE WT BEARING RT MIN 3V from 03/20/2020 CR XR FOOT WT BEARING RT 3V from 07/22/2020 FINDINGS: Postsurgical changes with anterior bone plate at the distal tibia and talus. Prior talocalcaneal fusion.. There is a zone of lucency around the screws within the talus and calcaneus and may be slightly more prominent. The screw from the calcaneus extends into the talus and into the distal tibia. The joint space is still visible. There does appear to be incomplete fusion of the posterior subtalar joint. There has been prior osteotomy at the distal fibula. There appears to be cortical collapse of the talar dome. There are osteoarthritic changes of the talonavicular joint and navicular cuneiform joint. Prior 1st metatarsal tarsal fusion with 2 large medial himanshu. Joint space does not appear fused. A medial staple is also present stabilizing osteotomy at the proximal aspect of the proximal phalanx of the great toe. There is a longitudinal screw in the 5th metatarsal base. Osteoarthritic changes are present at the calcaneocuboid joint IMPRESSION: Extensive postsurgical changes as described above with osteoarthritis. Prominent zone of lucency noted at the talocalcaneal/tibial screws which could be due to loosening or infection. Cortical collapse of the talar dome with incomplete fusion of the posterior subtalar joint and 1st metatarsal tarsal joint Dictated by: Sav Fong MD 07/22/2020 17:32 Sav Fong MD in [facility] 07/22/2020 17:32
== END ==
PROVIDERS: PCP Family Medicine; Visit Provider Podiatrist
DX: Z98.890 Other specified postprocedural states (principal); M79.671 Pain in right foot
CPT/HCPCS: 73610; 73630

== ENCOUNTER → 2020-08-08 12:40 | Outpatient (CLI) | payer MEDICAID, SELFPAY ==
--- NOTE | 2020-08-08 12:40 | CT_ITS ---
PROCEDURE: CT ANKLE RT WO CON CT FOOT WITHOUT CONTRAST CLINICAL HISTORY: POSTOP PAIN, NON-UNION Right foot/ankle surgery-December 2019 Foot/ankle/lower leg pain and swelling since surgery. Prior x-rays on pacs. COMPARISON: CR XR ANKLE WT BEARING RT MIN 3V from 07/22/2020 CR XR FOOT WT BEARING RT 3V from 07/22/[address] FOOT RT WO CON from 08/08/2020 TECHNIQUE: Axial images obtained with sagittal and coronal reformats. All CT scans at the facility use one or more dose reduction, viz: automated exposure control, ma/kV adjustment per patient size (including targeted exams where dose is matched to indication, i.e. head), or iterative reconstruction technique. FINDINGS: There has been extensive foot and ankle surgery. There is an anterior bone plate at the distal tibia. The distal most aspect of the bone plate curved along the superior aspect of the talus. Screws within the bone plate appear intact with no evidence of loosening. There is bony fusion of the tibiotalar joint. There are 2 lag screws within the calcaneus which extend from the posterior and inferior aspect of the calcaneus in an oblique nature cephalad to the distal tibia and talus. There is a prominent zone of lucency around both of the screws within the distal tibia and within the talus laterally with bony fragmentation and bony debris about the distal aspect of the screws. The screw which extends into the talus area actually appears to extend into the joint space of the talocalcaneal area laterally. There is nonunion of the talocalcaneal joint. Bony fragmentation is present along the lateral aspect of the distal tibia. There is an old fracture of the distal fibula with nonunion. There is extensive soft tissue swelling about the foot and ankle greater along the lateral aspect. A longitudinal screw is present within the base of the 5th metatarsal. There are 2 large himanshu between the 1st tarsal metatarsal junction. That joint does not appear to be fused. There is an additional small staple at the proximal aspect of the proximal phalanx of the great toe. No acute fracture or dislocation. IMPRESSION: Status post ankle joint and talocalcaneal fusion. The ankle joint does appear to be fused by the anterior bone plate at the tibial talar region. There is non bony fusion of the talocalcaneal joint with prominent zone of lucency along the distal aspect of the lag screws within the distal tibia and distal talocalcaneal region. Bony fragmentation is also present at these regions with extensive soft tissue swelling. No localized fluid collections are identified. Underlying infection is considered. There is a old distal fibular fracture with nonunion. Postsurgical changes of the foot. There is non bony union of the 1st metatarsal tarsal joint. Dictated by: Sav Fong MD 08/09/2020 06:37 Sav Fong MD in [facility] 08/09/2020 06:37
--- NOTE | 2020-08-08 12:40 | CT_ITS ---
PROCEDURE: CT FOOT RT WO CON CLINICAL HISTORY: POSTOP PAIN, NON-UNION Right foot/ankle surgery-Dec 2019 Foot/ankle/lower leg pain and swelling since surgery prior x-rays on pacs COMPARISON: CT CT ANKLE RT WO CON from 08/08/2020 TECHNIQUE: Axial images obtained with sagittal and coronal reformats. All CT scans at the facility use one or more dose reduction, viz: automated exposure control, ma/kV adjustment per patient size (including targeted exams where dose is matched to indication, i.e. head), or iterative reconstruction technique. FINDINGS: FINDINGS: There has been extensive foot and ankle surgery. There is an anterior bone plate at the distal tibia. The distal most aspect of the bone plate curved along the superior aspect of the talus. Screws within the bone plate appear intact with no evidence of loosening. There is bony fusion of the tibiotalar joint. There are 2 lag screws within the calcaneus which extend from the posterior and inferior aspect of the calcaneus in an oblique nature cephalad to the distal tibia and talus. There is a prominent zone of lucency around both of the screws within the distal tibia and within the talus laterally with bony fragmentation and bony debris about the distal aspect of the screws. The screw which extends into the talus area actually appears to extend into the joint space of the talocalcaneal area laterally. There is nonunion of the talocalcaneal joint. Bony fragmentation is present along the lateral aspect of the distal tibia. There is an old fracture of the distal fibula with nonunion. There is extensive soft tissue swelling about the foot and ankle greater along the lateral aspect. A longitudinal screw is present within the base of the 5th metatarsal. There are 2 large himanshu between the 1st tarsal metatarsal junction. That joint does not appear to be fused. There is an additional small staple at the proximal aspect of the proximal phalanx of the great toe. No acute fracture or dislocation. IMPRESSION: Status post ankle joint and talocalcaneal fusion. The ankle joint does appear to be fused by the anterior bone plate at the tibial talar region. There is non bony fusion of the talocalcaneal joint with prominent zone of lucency along the distal aspect of the lag screws within the distal tibia and distal talocalcaneal region. Bony fragmentation is also present at these regions with extensive soft tissue swelling. No localized fluid collections are identified. Underlying infection is considered. There is a old distal fibular fracture with nonunion. Loosening of the lag screws distally is also considered regarding the prominent zone of lucency at the distal tibia talus. Postsurgical changes of the foot. There is non bony union of the 1st metatarsal tarsal joint. Dictated by: Sav Fong MD 08/09/2020 06:44 Sav Fong MD in [facility] 08/09/2020 06:44
== END ==
PROVIDERS: PCP Family Medicine; Visit Provider Podiatrist
DX: M96.0 Pseudarthrosis after fusion or arthrodesis (principal); T84.9XXA Unspecified complication of internal orthopedic prosthetic device, implant and graft, initial encounter; Z98.890 Other specified postprocedural states
CPT/HCPCS: 73700

== ENCOUNTER → 2020-08-08 13:23 | Outpatient (CLI) | payer MEDICAID, SELFPAY ==
[2020-08-08 13:39] LABS: Basophils % 0.5 % (0.1-2.0); Eosinophils # 0.1 K/mm3 (0.0-0.4); Eosinophils % 2.2 % (0.1-12.0); Hematocrit 43.5 % (37.0-47.0); Hemoglobin 14.1 g/dL (12.2-16.2); Lymphocytes # 1.9 K/mm3 (0.7-4.5); Lymphocytes % 34.4 % (10-50); Mean Corpuscular HGB Conc 32.4 g/dL (31.8-35.4); Mean Corpuscular Hemoglobin 28.4 pg (27.0-31.2); Mean Corpuscular Volume 87.8 fl (81-99); Mean Platelet Volume 8.5 fl (7.4-10.4); Monocytes # 0.4 K/mm3 (0.1-1.0); Monocytes % 7.4 % (1.7-9.3); Neutrophils # 3.1 K/mm3 (1.8-7.8); Neutrophils % 55.6 % (37.0-80.0); Platelet Count 252 K/mm3 (142-424); Red Blood Count 4.95 M/mm3 (4.20-5.40); Red Cell Distribution Width 13.9 % (11.5-17.5); White Blood Count 5.6 K/mm3 (4.8-10.8)
[2020-08-08 14:09] LABS: Chloride 104 mmol/L (98-107); Potassium 3.9 mmoL/L (3.5-5.1); Sodium 140 mmol/L (136-145)
[2020-08-08 14:12] LABS: Alanine Aminotransferase 12 U/L (12-78); Albumin Level 4.6 g/dl (3.5-5.0); Albumin/Globulin Ratio 1.5 (1.1-1.8); Alkaline Phosphatase 96 U/L (38-126); Anion Gap 9.9 mEq/L (5-15); Aspartate Amino Transferase 26 U/L (14-36); Bilirubin,Total 0.9 mg/dl (0.2-1.3); Blood Urea Nitrogen 8 mg/dl (7-17); Carbon Dioxide 30 mmol/L (22.0-30.0); Estimated Glomerular Filt Rate 109 ml/min (>60); GFR (African American) 132 ML/MIN (>60); Total Protein,Serum 7.6 g/dl (6.3-8.2)
[2020-08-08 14:13] LABS: Calcium 9.9 mg/dl (8.4-10.2); Glucose 97 mg/dl (74-100)
[2020-08-08 14:18] LABS: C-Reactive Protein 5.6 mg/L (0-4)
[2020-08-08 14:20] LABS: Erythrocyte Sedimentation Rate 9 mm/hr (0-20)
[2020-08-16 14:49] LABS: 1,25 Dihydroxy Vitamin D 50 pg/mL (.); 1,25-Dihydroxy, Vitamin D-2 28 pg/mL (.); 1,25-Dihydroxy, Vitamin D-3 22 pg/mL (.)
== END ==
PROVIDERS: Visit Provider Podiatrist
DX: Z98.890 Other specified postprocedural states (principal); E55.9 Vitamin D deficiency, unspecified
CPT/HCPCS: 36415; 80053; 82652; 85025; 85651; 86140

== ENCOUNTER → 2020-09-08 10:33 | Outpatient (CLI) | payer MEDICAID, SELFPAY ==
--- NOTE | 2020-09-08 10:52 | ECG_ITS ---
APPROVED REPORT Exam: Resting ECG HR:48 bpm ECG Measurements Heart Rate 48 AXES NV 126 P 62 QRSd 86 QRS 70 QT 482 T 78 QTc 430 Conclusion Marked sinus bradycardia Abnormal ECG Electronically signed by : Nic Light, 09/08/2020 18:04:29
[2020-09-08 11:04] LABS: Basophils # 0.1 K/mm3 (0-0.2); Eosinophils # 0.2 K/mm3 (0.0-0.4); Eosinophils % 3.6 % (0.1-12.0); Hematocrit 43.6 % (37.0-47.0); Lymphocytes # 1.8 K/mm3 (0.7-4.5); Lymphocytes % 30.2 % (10-50); Mean Corpuscular HGB Conc 32.1 g/dL (31.8-35.4); Mean Corpuscular Hemoglobin 28.3 pg (27.0-31.2); Mean Corpuscular Volume 88.3 fl (81-99); Mean Platelet Volume 8.4 fl (7.4-10.4); Monocytes # 0.5 K/mm3 (0.1-1.0); Monocytes % 7.9 % (1.7-9.3); Neutrophils # 3.3 K/mm3 (1.8-7.8); Neutrophils % 57.3 % (37.0-80.0); Platelet Count 304 K/mm3 (142-424); Red Blood Count 4.94 M/mm3 (4.20-5.40); White Blood Count 5.8 K/mm3 (4.8-10.8)
[2020-09-08 11:42] LABS: Chloride 100 mmol/L (98-107)
[2020-09-08 11:43] LABS: Potassium 4.2 mmoL/L (3.5-5.1); Sodium 138 mmol/L (136-145)
[2020-09-08 11:45] LABS: Alanine Aminotransferase 11 U/L (12-78); Aspartate Amino Transferase 22 U/L (14-36); Blood Urea Nitrogen 11 mg/dl (7-17); Estimated Glomerular Filt Rate 109 ml/min (>60); GFR (African American) 132 ML/MIN (>60)
[2020-09-08 11:46] LABS: Albumin Level 4.7 g/dl (3.5-5.0); Albumin/Globulin Ratio 1.6 (1.1-1.8); Alkaline Phosphatase 84 U/L (38-126); Anion Gap 11.2 mEq/L (5-15); Bilirubin,Total 0.6 mg/dl (0.2-1.3); Calcium 10.1 mg/dl (8.4-10.2); Carbon Dioxide 31 mmol/L (22.0-30.0); Globulin 2.9 g/dL (1.3-3.2); Glucose 105 mg/dl (74-100); Total Protein,Serum 7.6 g/dl (6.3-8.2)
[2020-09-08 11:52] LABS: C-Reactive Protein 3.6 mg/L (0-4)
[2020-09-08 11:54] LABS: Erythrocyte Sedimentation Rate 7 mm/hr (0-20)
[2020-09-08 12:04] LABS: Coronavirus 19 IgG Antibody Negative (Negative); Coronavirus 19 IgM Antibody Negative (Negative)
== END ==
PROVIDERS: Visit Provider Podiatrist
DX: Z01.818 Encounter for other preprocedural examination (principal); Z11.52 Encounter for screening for COVID-19
CPT/HCPCS: 36415; 80053; 85025; 85651; 86140; 86328; 93005

== ENCOUNTER 2020-09-10 07:40 | Observation (INO) | payer MEDICAID, SELFPAY ==
[2020-09-09 09:45] VITALS: BMI 30.4
[2020-09-10] VITALS (18 sets, daily range): BP systolic 115–166; BP diastolic 46–109; PULSE 54–78; RESP 14–18; TEMP 36.2–42.7; O2SAT 95–100; BMI 34.2
[2020-09-10 07:05] LABS: Urine Pregnancy, HCG Qual. Negative (Negative)
--- NOTE | 2020-09-10 07:38 | P.PN_ITS ---
[facility] Anesthesia Checklist - Patient Identification Patient Identification: Arm Band - Structural Data Admitted From: Home Planned Operative Procedure/s: Podiatry Consent for Planned Operative Procedure(s) Verified: Yes - NPO Status Verified Time NPO: 00:00 - Chart Verification Results Verified: HCG - Additional verifications Anesthesia Reactions: No Hx Blood Transfusions: No Blood Transfusion Reaction: No - Airway Assessment C-Spine Mobility Assessed: Yes TMJ Mobility Assessed: Yes Dentition: Good Dentition - Neurological Assessment Level of Consciousness: Awake, Alert Hx Seizures: No Numbness or tingling in extremities: Yes - Anesthesia Plan Anesthesia Risk discussed: Yes Anesthesia Plan: Verified ASA Class: II Anesthesia Type: General w/block [facility] History I have reviewed the patient's past medical history: Yes Medical History: Reports:: Anxiety, Depression, Gastroesophageal Reflux Disease(GERD) Denies:: Cancer, Diabetes Mellitus Type 1, Diabetes Mellitus Type 2, Internal Pacemaker, MRSA, Seizures *Have you ever received a pneumonia vaccine?: No *Have you received a flu vaccine this season?: No Other Medical History: Reports: Arthritis, Other. Denies: Blood Transfusion Reaction Anesthesia experience/problems:: Combativeness upon awakening Laterality Cases: Bilateral: Arthroscopy Knee Other Surgeries: Yes: Cholecystectomy, Tubal Ligation, Other. No: Pacemaker Amputation: No Fractures: Yes (R foot x2) - *Social History Last grade of school completed: High school graduate Smoking Status: Former smoker Tobacco Type: cigarettes Alcohol Intake: never Alcohol Intake Frequency:: holidays/special occasions only Substance Use Type: denies use, former substance user, opiates, painkillers *Occupational Status:: unemployed Housing: house Household Members: none *Travel in the last 8 weeks: None - Psychiatric History Pschychiatric History:: Reports:: Anxiety, Depression Family Hx:: Hypertension
--- NOTE | 2020-09-10 08:37 | SUR.OPER ---
0815 [facility] updated
--- NOTE | 2020-09-10 09:19 | SUR.OPER ---
family updated, surgery making progress, no complications
[2020-09-10 09:23] LABS: Adenovirus,PCR Not Detected (NotDetected); Bordetella Pertussis Not Detected (NotDetected); Chlamydophila Pneumoniae, PCR Not Detected (NotDetected); Coronavirus 19, PCR Not Detected (NotDetected); Coronavirus 229E Not Detected (NotDetected); Coronavirus NL63 Not Detected (NotDetected); Coronavirus OC43 Not Detected (NotDetected); Coronovirus HKU1,PCR Not Detected (NotDetected); Human Metapneumovirus Not Detected (NotDetected); Influenza A, PCR Not Detected (NotDetected); Influenza AH1, 2009 Not Detected (NotDetected); Influenza AH1, PCR Not Detected (NotDetected); Influenza AH3,PCR Not Detected (NotDetected); Influenza B, PCR Not Detected (NotDetected); Mycoplasma Pneumoniae, PCR Not Detected (NotDetected); Parainfluenza 1, PCR Not Detected (NotDetected); Parainfluenza 2, PCR Not Detected (NotDetected); Parainfluenza 3, PCR Not Detected (NotDetected); Parainfluenza 4, PCR Not Detected (NotDetected); Respiratory Syncytial Virus Not Detected (NotDetected); Rhinovirus/Enterovirus Not Detected (NotDetected)
--- NOTE | 2020-09-10 10:02 | XR_ITS ---
PROCEDURE: XR ANKLE RT MIN 3V CLINICAL INDICATION: surgery Follow-up surgery COMPARISON: CR XR ANKLE WT BEARING RT MIN 3V from 02/12/2020 CR XR ANKLE WT BEARING RT MIN 3V from 02/28/2020 CR XR ANKLE WT BEARING RT MIN 3V from 03/20/2020 CR XR ANKLE WT BEARING RT MIN 3V from 07/22/2020 CR XR CALCANEUS RT MIN 2V from 09/10/2020 FINDINGS: There has been revision of the talocalcaneal arthrodesis now with 2 screws present with good alignment. The screws are present from the posterior aspect of the calcaneus directed obliquely to the mid and distal talar region. The anterior tibial talar bone plate remains in place. Medial bone plate is present at the medial cuneiform/1st metatarsal region with interval removal of the 2 himanshu. There is a posterior splint in place. Other findings:None. IMPRESSION: Postsurgical changes present as described Dictated by: Sav Fong MD 09/10/2020 14:13 Sav Fong MD in [place] 09/10/2020 14:13
--- NOTE | 2020-09-10 10:20 | HMH.PHAINT ---
MEDICATION RECONCILIATION COMPLETED USING EXTERNAL FILL HISTORY AND PHYSICIAN OFFICE NOTE
--- NOTE | 2020-09-10 12:32 | SUR.OPER ---
1214-updated family in waiting rm
--- NOTE | 2020-09-10 12:35 | SUR.OPER ---
1200- family updated, last procedure in progress, patient doing well
--- NOTE | 2020-09-10 13:24 | XR_ITS ---
PROCEDURE: XR FOOT RT 2V CLINICAL INDICATION: C ARM IN OR Subtalar arthrodesis COMPARISON: CR XR FOOT WT BEARING RT 3V from 02/12/2020 CR XR FOOT WT BEARING RT 3V from 02/28/2020 CR XR FOOT WT BEARING RT 3V from 03/20/2020 CR XR FOOT WT BEARING RT 3V from 07/22/2020 FINDINGS: Fluoroscopy time: 7 minutes and 20 seconds. Multiple images are submitted during the procedure. There has been placement a bone plate at the medial cuneiform and 1st metatarsal and 2 new screws within the talocalcaneal region. Other findings:None. IMPRESSION: Status post revision subtalar arthrodesis and 1st metatarsal tarsal bone plate placement with C-arm guidance. Dictated by: Sav Fong MD 09/10/2020 14:00 Sav Fong MD in [place] 09/10/2020 14:00
--- NOTE | 2020-09-10 13:25 | P.PN_ITS ---
[facility] Anesthesia Record Part I Intake, IV Amount: 800 Estimated blood loss (mL): 40 Urine output (mL): 1,100 Blood Pressure: 120/73 SaO2: 99 Pulse Rate: 73 Respiratory Rate: 14 Temperature: 97.1 F Patient is:: Awake Stable to PACU at:: 13:24
[2020-09-10 13:39] LABS: Microscopic,Cath URINE MICROSCOPIC (MICROSCOPIC)
--- NOTE | 2020-09-10 13:48 | HMH.HPDC ---
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 She underwent surgical reconstruction 01/02/2020. Patient had a relatively uneventful postoperative course with no infection or wound complication. Given the increase, CT scans were obtained to evaluate for nonunion. Labs were also done to evaluate for infection although she did not have any wound healing complications and presents with no obvious signs of clinical infection. X-rays and CT scans were reviewed and discussed with the patient. X-rays show cortical collapse of talar dome, incomplete STJ fusion and CT shows nonunion of the talocalcaneal joint with prominent zone of lucency along the distal aspect of the lag screws within the distal tibia and distal talocalcaneal region. Bony fragmentation is also present at these regions with extensive soft tissue swelling. No localized fluid collections are identified. Underlying infection is considered. There is a old distal fibular fracture with nonunion. Loosening of the lag screws distally is also considered regarding the prominent zone of lucency at the distal tibia talus. Postsurgical changes of the foot. There is non bony union of the 1st metatarsal tarsal joint. The ankle joint does appear to be fused by the anterior bone plate at the tibial talar region. Patient did get the bone stimulator and is using it 3 hours daily as recommended. Conservative treatment discussed but not recommended. We discussed surgery to revise the nonunion. Medical clearance granted by PCP, Dr. Yovani Saenz. Patient currently attends the Suboxone clinic under the direction of Dr. Samayoa. Patient states that that she discussed stopping the Suboxone with Dr. Morel and resuming narcotic medication for chronic pain control. I explained to the patient that I do not manage long-term pain. We discussed in detail tolerance and addiction. Given the patient's history for substance abuse and Suboxone usage, will discuss plan of care with the pain clinic in [place], [place]. Initial postoperative pain control narcotic prescriptions given by myself after discussion and clearance with the clinic. She held the Suboxone for a week. We discussed in detail difficulty with postoperative pain control. She has chronic long-term pain issues. Her PCP did refer her to a pain management doctor, Dr. Anil Vallejo (phone: [phone]), who she saw 09/05/20. Labs. 08/08/20: wbc 5.6, esr 9, crp 5.6, glucose 97, vitamin D2 28, vitamin D3 22. Necessary labs and pre-op testing ordered: CBC, BMP, EKG, covid. e-Rx Zofran, Motrin, Flexeril, has the lovenox. Patient has crutches and walker at home. [facility] History I have reviewed the patient's past medical history: Yes Medical History: Reports:: Anxiety, Depression, Gastroesophageal Reflux Disease(GERD) Denies:: Cancer, Diabetes Mellitus Type 1, Diabetes Mellitus Type 2, Internal Pacemaker, MRSA, Seizures *Have you ever received a pneumonia vaccine?: No *Have you received a flu vaccine this season?: No Other Medical History: Reports: Arthritis, Other. Denies: Blood Transfusion Reaction Anesthesia experience/problems:: Combativeness upon awakening Laterality Cases: Bilateral: Arthroscopy Knee Other Surgeries: Yes: Cholecystectomy, Tubal Ligation, Other. No: Pacemaker Amputation: No Fractures: Yes (R foot x2) - *Social History Last grade of school completed: High school graduate Smoking Status: Former smoker Tobacco Type: cigarettes Alcohol Intake: never Alcohol Intake Frequency:: holidays/special occasions only Substance Use Type: denies use, former substance user, opiates, painkillers *Occupational Status:: unemployed Housing: house Household Members: none *Travel in the last 8 weeks: None - Psychiatric History [facility]
--- NOTE | 2020-09-10 13:49 | HMH.OPNOTE ---
Date of procedure: 09/10/20 Pre-op Diagnosis:: 1. Right nonunion of subtalar arthrodesis 2. Right foot Charcot neuroarthropathy 3. Failure of joint fusion 4. Right foot drop 5. Lymphedema of right lower extremity 6. Retained orthopedic hardware 7. Acquired equinovarus deformity of right foot 8. Scar 9. Vitamin D deficiency 10. Obesity, Class I, BMI 30-34.9 Post-op Diagnosis:: Same Procedure performed:: 1. Right subtalar joint nonunion resection and revision of arthrodesis 2. Right tarsal metatarsal joint nonunion resection and revision of arthrodesis 3. Right foot hardware removal 4. Right application of bone/tissue graft 5. Right foot synovectomy 6. Right foot excision of scar tissue, 1st MPJ release and medial capsulorrhaphy 7. 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 She underwent surgical reconstruction 01/02/2020. Patient had a relatively uneventful postoperative course with no infection or wound complication. She had been attending PT at [facility] with Aj Cook. She initially reported improvement with strength and balance. Over the last few months she has regressed and the swelling and pain has become worse. Given the increase, CT scans were obtained to evaluate for nonunion. Labs were also done to evaluate for infection although she did not have any wound healing complications and presents with no obvious signs of clinical infection. X-rays and CT scans were reviewed and discussed with the patient. X-rays show cortical collapse of talar dome, incomplete STJ fusion and CT shows nonunion of the talocalcaneal joint with prominent zone of lucency along the distal aspect of the lag screws within the distal tibia and distal talocalcaneal region. Bony fragmentation is also present at these regions with extensive soft tissue swelling. No localized fluid collections are identified. Underlying infection is considered. There is a old distal fibular fracture with nonunion. Loosening of the lag screws distally is also considered regarding the prominent zone of lucency at the distal tibia talus. Postsurgical changes of the foot. There is non bony union of the 1st metatarsal tarsal joint. The ankle joint does appear to be fused by the anterior bone plate at the tibial talar region. Patient did get the bone stimulator and is using it 3 hours daily as recommended. Conservative treatment discussed but not recommended. We discussed surgery to revise the nonunion. All risks and benefits were discussed including but not limited to: damage to blood vessels and nerves, bleeding, infection, wound complications, delayed, mal or non-union of bone, post-traumatic arthritis, need for further surgery, implant failure, need for removal of implant, prolonged or permanent swelling of the extremity, prolonged or permanent pain or deformity, CRPS/RSD, DVT/PE, and anesthetic complications including . No guarantees were given. All questions fully answered. The patient verbalized understanding and agreed to proceed with surgery. Consent was obtained. Medical clearance granted by PCP, Dr. Yovani Saenz. Patient currently attends the Suboxone clinic under the direction of Dr. Samayoa. Patient states that that she discussed stopping the Suboxone with Dr. Morel and resuming narcotic medication for chronic pain control. I explained to the patient that I do not manage long-term pain. We discussed in detail tolerance and addiction. Given the patient's history for substance abuse and Suboxone usage, will discuss plan of care with the pain clinic in [place], [place]. Initial postoperative pain control narcotic prescriptions given by myself after disc
[2020-09-10 14:16] LABS: Appearance,Urine/Cath CLEAR (Clear); Bilirubin,Cath Negative (Negative); Blood, Urine/Cath Negative (Negative); Color,Urine/Cath YELLOW (Yellow); Glucose,Urine/Cath (UA) Negative (Negative); Ketones,Urine/Cath Negative (Negative); Leukocyte Esterase,Cath Negative (Negative); Nitrate,Cath Negative (Negative); PH,Urine/Cath 6.5 (5.0-8.5); Protein,Urine/Cath Negative (Negative); Specific Gravity, Urine/Cath 1.015 (1.005-1.030)
[2020-09-10 14:24] LABS: RBC,Urine/Cath Occasional # /hpf (0-3); Squamous Epithelial Ur./Cath Occasional #/hpf (0-5); WBC,Urine/Cath Occasional #/hpf (0-3)
--- NOTE | 2020-09-10 16:43 | PC.NURSE ---
since arrival to floor patient has done okay. some chronic pain noted in back and hips. medicated with dilauded upon admission to floor. noted feeling started to return to feet. especially in big toe. medicated with oxycodone. no other complaints. vitals stable. rings out as needed. ice pack applied. scuds pump on
[2020-09-11] VITALS: BP 126/77; PULSE 60; RESP 16; TEMP 37.3; O2SAT 95
[2020-09-11 04:00] VITALS: BP 127/75; PULSE 54; RESP 16; TEMP 36.9; O2SAT 96
--- NOTE | 2020-09-11 05:00 | PC.NURSE ---
shift summary pts lung sounds are clear with sats maintained 95% or above on room air with a rate ranging from 16-18. pt is alert and oriented X4. pt has only complained of pain one time during shift that required pain meds other then scheduled meds which relieved pts pain. pt denies any nausea, vomiting, or diarrhea.
[2020-09-11 06:00] VITALS: BMI 34.1
[2020-09-11 06:47] LABS: Basophils % 0.5 % (0.1-2.0); Eosinophils # 0.1 K/mm3 (0.0-0.4); Eosinophils % 1.1 % (0.1-12.0); Hematocrit 39.1 % (37.0-47.0); Hemoglobin 12.2 g/dL (12.2-16.2); Lymphocytes # 1.6 K/mm3 (0.7-4.5); Lymphocytes % 24.6 % (10-50); Mean Corpuscular HGB Conc 31.3 g/dL (31.8-35.4); Mean Corpuscular Hemoglobin 27.7 pg (27.0-31.2); Mean Corpuscular Volume 88.4 fl (81-99); Mean Platelet Volume 8.5 fl (7.4-10.4); Monocytes # 0.6 K/mm3 (0.1-1.0); Monocytes % 8.4 % (1.7-9.3); Neutrophils # 4.4 K/mm3 (1.8-7.8); Neutrophils % 65.4 % (37.0-80.0); Platelet Count 221 K/mm3 (142-424); Red Blood Count 4.42 M/mm3 (4.20-5.40); Red Cell Distribution Width 14.3 % (11.5-17.5); White Blood Count 6.7 K/mm3 (4.8-10.8)
[2020-09-11 07:05] LABS: Chloride 102 mmol/L (98-107); Potassium 3.9 mmoL/L (3.5-5.1); Sodium 137 mmol/L (136-145)
[2020-09-11 07:07] LABS: Blood Urea Nitrogen 10 mg/dl (7-17); Creatinine Clearance Estimated 195 mL/min (50-200); Estimated Glomerular Filt Rate 109 ml/min (>60); GFR (African American) 132 ML/MIN (>60)
[2020-09-11 07:08] LABS: Alanine Aminotransferase 9 U/L (12-78); Albumin Level 3.8 g/dl (3.5-5.0); Albumin/Globulin Ratio 1.4 (1.1-1.8); Alkaline Phosphatase 70 U/L (38-126); Anion Gap 8.9 mEq/L (5-15); Aspartate Amino Transferase 28 U/L (14-36); Bilirubin,Total 0.5 mg/dl (0.2-1.3); Calcium 9.1 mg/dl (8.4-10.2); Carbon Dioxide 30 mmol/L (22.0-30.0); Globulin 2.7 g/dL (1.3-3.2); Glucose 108 mg/dl (74-100); Total Protein,Serum 6.5 g/dl (6.3-8.2)
[2020-09-11 08:00] VITALS: BP 125/60; PULSE 60; RESP 18; TEMP 36.6; O2SAT 100
--- NOTE | 2020-09-11 09:31 | HMH.ANESII ---
[facility] Anesthesia Record Part II Discharge Time: 13:25 Destination: Second Floor PACU nurse assessment reviewed?: Yes Patient Condition:: Good Anesthesia Complications:: None Swallowing reflex intact?: Yes Cyanosis?: No Blood Pressure: 155/76 Pulse Rate: 75 Temperature: 97.1 F Mental Status: Alert & Oriented Pain level:: 0 Nausea and/or vomitting:: None Intake, IV Amount: 500
[2020-09-11 09:32] VITALS: BP 155/76; PULSE 75; TEMP 36.2
--- NOTE | 2020-09-11 12:18 | HMH.PTEV ---
Physical Therapy Evaluation Rehab PT IP Evaluation Start: 09/10/20 13:03 Freq: ONCE Status: Discharge Protocol: Document 09/11/20 10:50 KATJA (Rec: 09/11/20 12:18 [place] [id number]) Subjective/History History History 45 yowf adm to [facility] for revision of R ankle surgery. She is staying with her mother at this time, 2 steps to enter the home and is independent with use of axillary crutches. Subjective Subjective No new c/o at this time. Rehab PT IP Eval Objective Appearance Patient Behavior Appropriate Patient Orientation Person,Place,Time Difficulty following instructions none Speech Pattern Clear Ambulation Patient Able to Ambulate Yes Ambulation Observation Ambulation Distance (feet) 15 Ambulation Assistive Device Rolling Walker Ambulation Ability Independent Balance Ability to Arise Able, w/o using arms Sitting Balance Steady, safe Standing Balance Narrow stance w/o support Dynamic Sitting Balance Ability Normal Dynamic Standing Balance Ability Normal Transfers Bed Transfer Ability Independent Chair Transfer Ability Independent Sit to Stand Bed Transfer Ability Independent Sit to Stand Chair Transfer Ability Independent Rehab PT IP prob,goals,plan Problems Date of Evaluation: 09/11/20 Discharge Plan PT Discharge Plan Pt is independent with all mobility and already proficient with use of crutches while maintaining NWB of R LE. G -code Required No Eval Complexity Eval Charge Codes 01052 - Moderate Complexity PHYSICIAN CERTIFICATION: I certify the specified therapy services for Monalisa Jama are required, authorized, and reviewed every 30 days.
== END 2020-09-11 11:40 | disposition home or self-care (01) ==
LOC: 2ND 07:40
PROVIDERS: Admitting Provider Podiatrist; PCP Family Medicine; Visit Provider Podiatrist
PROC: (CPT 28725; principal; 2020-09-10 07:30)
DX: T84.418A Breakdown (mechanical) of other internal orthopedic devices, implants and grafts, initial encounter (principal); M96.0 Pseudarthrosis after fusion or arthrodesis; M21.371 Foot drop, right foot; I89.0 Lymphedema, not elsewhere classified; E55.9 Vitamin D deficiency, unspecified; M24.574 Contracture, right foot; M21.541 Acquired clubfoot, right foot; M25.871 Other specified joint disorders, right ankle and foot; M65.9 Synovitis and tenosynovitis, unspecified; M14.671 Charcot's joint, right ankle and foot; Z47.2 Encounter for removal of internal fixation device; Z88.2 Allergy status to sulfonamides; Z88.1 Allergy status to other antibiotic agents; Z79.899 Other long term (current) drug therapy; L90.5 Scar conditions and fibrosis of skin
CPT/HCPCS: 28725; 28270; 20680; 73610; 73620; 73650; 76000; 80053; 81001; 81025; 85025; 87581; 87633; 87798; 96374; 97162; C1713; C1734; C1762; C1776; G0378

== ENCOUNTER → 2020-10-06 15:13 | Outpatient (CLI) | payer MEDICAID, SELFPAY ==
--- NOTE | 2020-10-06 15:17 | XR_ITS ---
PROCEDURE: XR ANKLE WT BEARING RT MIN 3V X-ray weight-bearing right foot CLINICAL INDICATION: Simulated Follow-up surgery COMPARISON: CR XR ANKLE WT BEARING RT MIN 3V from 02/28/2020 CR XR ANKLE WT BEARING RT MIN 3V from 03/20/2020 CR XR ANKLE WT BEARING RT MIN 3V from 07/22/2020 CR XR ANKLE RT MIN 3V from 09/10/2020 CR XR FOOT WT BEARING RT 3V from 10/06/2020 FINDINGS: Status post ankle joint fusion with anterior curved bone plate at the tibial talar region. Status post talocalcaneal fusion with posterior screws in place. There remains good alignment with overall no significant change. Status post osteotomy of the distal aspect of the fibula and of the talar dome. Right foot: Prior osteotomy at the 1st tarsal metatarsal junction unchanged. Longitudinal screws present within the base of the 5th metatarsal unchanged. There remains good alignment. Bony hypertrophy along the dorsal aspect of the tarsal metatarsal junction unchanged. IMPRESSION: Status post ankle, hindfoot, and midfoot fusion as described above overall not significantly changed. Dictated by: Sav Fong MD 10/06/2020 16:25 Sav Fong MD in [place] 10/06/2020 16:25
== END ==
PROVIDERS: PCP Family Medicine; Visit Provider Podiatrist
DX: Z98.890 Other specified postprocedural states (principal); M25.571 Pain in right ankle and joints of right foot
CPT/HCPCS: 73610; 73630

== ENCOUNTER → 2020-10-30 15:44 | Outpatient (CLI) | payer MEDICAID, SELFPAY ==
--- NOTE | 2020-10-30 15:48 | XR_ITS ---
PROCEDURE: XR ANKLE WT BEARING RT MIN 3V XR foot weight-bearing right three-view CLINICAL INDICATION: postop views COMPARISON: CR XR ANKLE WT BEARING RT MIN 3V from 03/20/2020 CR XR ANKLE WT BEARING RT MIN 3V from 07/22/2020 CR XR ANKLE RT MIN 3V from 09/10/2020 CR XR FOOT WT BEARING RT 3V from 10/06/2020 CR XR ANKLE WT BEARING RT MIN 3V from 10/06/2020 CR XR FOOT WT BEARING RT 3V from 10/30/2020 FINDINGS: Extensive postop changes of the right ankle are noted similar to prior exam with plate and screw fixation of the distal fibula screw fixation of the subtalar joint and plate and screw fixation of base of metatarsal region medially. There has been interval removal of the overlying splint material. No abnormality of orthopedic hardware. Views of the right foot again show extensive postop changes of the distal tibia and subtalar joint as well as base of 1st metatarsal with single screw noted in the 5th metatarsal. Orthopedic hardware is stable with no focal abnormality noted. Interval removal of splint material. IMPRESSION: Stable postop changes of the right foot and ankle as described with interval removal of overlying splint material. Dictated by: Anthony Licona MD 10/30/2020 16:18 Anthony Licona MD in [place] 10/30/2020 16:18
== END ==
PROVIDERS: PCP Family Medicine; Visit Provider Nurse Practitioner
DX: Z98.890 Other specified postprocedural states (principal); M25.571 Pain in right ankle and joints of right foot
CPT/HCPCS: 73610; 73630

== ENCOUNTER → 2020-12-04 13:32 | Outpatient (CLI) | payer MEDICAID, SELFPAY ==
--- NOTE | 2020-12-04 13:35 | XR_ITS ---
PROCEDURE: XR ANKLE WT BEARING RT MIN 3V CLINICAL INDICATION: post-op COMPARISON: CR XR ANKLE WT BEARING RT MIN 3V from 07/22/2020 CR XR ANKLE RT MIN 3V from 09/10/2020 CR XR ANKLE WT BEARING RT MIN 3V from 10/06/2020 CR XR ANKLE WT BEARING RT MIN 3V from 10/30/2020 FINDINGS: Postoperative changes with multiple plate and screw fixations involving the distal tibia, subtalar so joints and tarsometatarsal joints, demonstrate no significant interval change compared to prior study. Severe degenerative changes of the tibiotalar joint with loss of joint space, subchondral sclerosis and heterotopic ossification is again noted. No interval change is noted compared to the prior study. Calcaneal spur is noted. Minor soft tissue swelling adjacent to the ankle joint. IMPRESSION: Stable postoperative changes with internal fixation of the tibiotalar and subtalar joints. No interval change. Dictated by: Renetta Reveles 12/04/2020 15:21 Renetta Reveles in [place] 12/04/2020 15:21
--- NOTE | 2020-12-04 13:35 | XR_ITS ---
PROCEDURE: XR FOOT WT BEARING RT 3V CLINICAL INDICATION: post-op COMPARISON: CR XR FOOT WT BEARING RT 3V from 07/22/2020 CR XR FOOT RT 2V from 09/10/2020 CR XR FOOT WT BEARING RT 3V from 10/06/2020 CR XR FOOT WT BEARING RT 3V from 10/30/2020 FINDINGS: Postsurgical changes with plate and screw fixation of the tibiotalar and subtalar joint, better seen on the ankle radiographs. Internal fixation of the 5th metatarsal and 1st tarsometatarsal joints are noted. Degenerative changes are noted at the tarsometatarsal joints and 1st MTP joint. There is mild subluxation of the 1st MTP joint, unchanged. Minor soft tissue swelling over the dorsum of the foot. IMPRESSION: No interval change compared to prior study. Dictated by: Renetta Reveles 12/04/2020 15:22 Renetta Reveles in [place] 12/04/2020 15:22
== END ==
PROVIDERS: PCP Family Medicine; Visit Provider Podiatrist
DX: Z98.890 Other specified postprocedural states (principal)
CPT/HCPCS: 73610; 73630

== ENCOUNTER → 2021-03-03 13:07 | Outpatient (CLI) | payer MEDICAID, SELFPAY ==
--- NOTE | 2021-03-03 13:12 | XR_ITS ---
PROCEDURE: XR FOOT WT BEARING RT 3V XR ANKLE WEIGHT-BEARING RIGHT 3 V CLINICAL INDICATION: postop views COMPARISON: CR XR FOOT RT 2V from 09/10/2020 CR XR FOOT WT BEARING RT 3V from 10/06/2020 CR XR FOOT WT BEARING RT 3V from 10/30/2020 CR XR FOOT WT BEARING RT 3V from 12/04/2020 CR XR ANKLE WT BEARING RT MIN 3V from 12/04/2020 CR XR ANKLE WT BEARING RT MIN 3V from 03/03/2021 FINDINGS: Right ankle status post hardware fusion the talotibial joint with an anterior bone plate with stabilizing screws. Status post hardware talocalcaneal fusion with 2 large screws Status post hardware 1st tarsal metatarsal fusion with medial bone plate, stable, and cortical screw. Status post 5th proximal metatarsal ORIF with longitudinal screw. No hardware malfunction. Osteoarthritic changes talonavicular and navicular cuneiform as well as the tarsal metatarsal junction. Mildly prominent calcaneal spur. IMPRESSION: Postsurgical changes as described above which appears stable Dictated by: Sav Fong MD 03/04/2021 08:07 Sav Fong MD in [place] 03/04/2021 08:07
== END ==
PROVIDERS: PCP Family Medicine; Visit Provider Podiatrist
DX: M14.671 Charcot's joint, right ankle and foot (principal); M25.871 Other specified joint disorders, right ankle and foot; M21.541 Acquired clubfoot, right foot; T84.9XXA Unspecified complication of internal orthopedic prosthetic device, implant and graft, initial encounter; Z96.9 Presence of functional implant, unspecified; Z98.890 Other specified postprocedural states
CPT/HCPCS: 73610; 73630

== ENCOUNTER → 2021-06-16 13:25 | Outpatient (CLI) | payer MEDICAID, SELFPAY ==
--- NOTE | 2021-06-16 13:29 | XR_ITS ---
FINAL REPORT CLINICAL HISTORY: postop views, pain and swelling COMPARISON: March 03, 2021 FINDINGS: RIGHT FOOT Three views of the right foot demonstrate no acute fracture or dislocation. There are postoperative changes of the 1st tarsal metatarsal joint and proximal 5th metatarsal. There are mild degenerative changes. There is a chronic deformity of the 1st proximal phalanx. The bones are osteopenic. The soft tissues are unremarkable. IMPRESSION: Postoperative and degenerative changes as described. Overall stable exam. Reviewed, Interpreted and Dictated by Thom Arango III, MD Transcribed by Bisi León Authenticated by Thom Arango III, MD on 06/16/2021 02:55:13 PM [facility]
--- NOTE | 2021-06-16 13:29 | XR_ITS ---
FINAL REPORT CLINICAL HISTORY: postop views, pain, swelling COMPARISON: March 03, 2021 FINDINGS: LEFT ANKLE: Three views of the left ankle were obtained. There are postoperative changes from fusion of the ankle and rear foot. There are postoperative changes in the midfoot. There is no acute fracture or dislocation. There are diffuse degenerative changes. There is soft tissue swelling, greatest laterally. IMPRESSION: Postoperative changes as described with soft tissue swelling greatest laterally. Overall stable exam. Reviewed, Interpreted and Dictated by Thom Arango III, MD Transcribed by Bisi León Authenticated by Thom Arango III, MD on 06/16/2021 02:55:15 PM [facility]
== END ==
PROVIDERS: PCP Family Medicine; Visit Provider Podiatrist
DX: M14.671 Charcot's joint, right ankle and foot (principal); M25.571 Pain in right ankle and joints of right foot; M25.871 Other specified joint disorders, right ankle and foot; Z98.890 Other specified postprocedural states
CPT/HCPCS: 73610; 73630

== ENCOUNTER → 2021-09-28 15:04 | Outpatient (CLI) | payer MEDICAID, SELFPAY ==
--- NOTE | 2021-09-28 15:09 | XR_ITS ---
FINAL REPORT CLINICAL HISTORY: POSTOP VIEWS FINDINGS: RIGHT CALCANEUS 2 views were obtained. There are postoperative changes from talocalcaneal fusion with 2 screws present. There is a lucency adjacent to the screws measuring up to 1 mm. There are other postoperative changes in the ankle and midfoot. There is a plantar calcaneal spur. There is no soft tissue abnormality. IMPRESSION: Postoperative changes as above. Reviewed, Interpreted and Dictated by Thom Arango III, MD Transcribed by Sulma Maier Authenticated by Thom Arango III, MD on 09/28/2021 04:24:17 PM [facility]
--- NOTE | 2021-09-28 15:09 | XR_ITS ---
FINAL REPORT CLINICAL HISTORY: POSTOP VIEWS COMPARISON: June 16, 2021 FINDINGS: RIGHT FOOT 3 views of the right foot were obtained. There are postoperative changes at the 1st tarsal metatarsal joint and proximal 5th metatarsal. There are screw plates with multiple screws, stable. There is mild degenerative change. There is a mild hallux valgus deformity identified. Soft tissues are unremarkable. IMPRESSION: Postoperative and degenerative changes as above. Overall appearance is visually stable. Reviewed, Interpreted and Dictated by Thom Arango III, MD Transcribed by Sulma Maier Authenticated by Thom Arango III, MD on 09/28/2021 04:33:36 PM [facility]
--- NOTE | 2021-09-28 15:09 | XR_ITS ---
FINAL REPORT CLINICAL HISTORY: POSTOP VIEWS COMPARISON: June 16, 2021 FINDINGS: RIGHT ANKLE 3 views of the right ankle were obtained. There are extensive postoperative changes of the ankle, rear foot, and midfoot. There are screw plates and multiple screws which are stable in appearance. There are severe degenerative changes. Soft tissue swelling is identified. IMPRESSION: Postoperative degenerative changes as above, stable in appearance. Reviewed, Interpreted and Dictated by Thom Arango III, MD Transcribed by Sulma Maier Authenticated by Thom Arango III, MD on 09/28/2021 04:34:32 PM [facility]
== END ==
PROVIDERS: PCP Family Medicine; Visit Provider Podiatrist
DX: M25.572 Pain in left ankle and joints of left foot (principal); M19.071 Primary osteoarthritis, right ankle and foot; M14.671 Charcot's joint, right ankle and foot; S86.891D Other injury of other muscle(s) and tendon(s) at lower leg level, right leg, subsequent encounter; Z98.890 Other specified postprocedural states
CPT/HCPCS: 73610; 73630; 73650

== ENCOUNTER → 2021-12-28 16:05 | Outpatient (CLI) | payer MEDICAID, SELFPAY ==
--- NOTE | 2021-12-28 16:11 | XR_ITS ---
FINAL REPORT CLINICAL HISTORY: postop views FINDINGS: RIGHT CALCANEUS 2 views of the right calcaneus were obtained. There are postoperative changes from talocalcaneal fusion with 2 screws present. There is some lucency surrounding the screws of uncertain significance, loosening is not excluded. There are extensive postoperative changes elsewhere in the foot and ankle. There is a plantar calcaneal spur. There is no soft tissue abnormality. IMPRESSION: Postoperative change as described. Reviewed, Interpreted and Dictated by Thom Arango III, MD Transcribed by Bisi León Authenticated and [facility]
--- NOTE | 2021-12-28 16:11 | XR_ITS ---
FINAL REPORT CLINICAL HISTORY: postop views FINDINGS: RIGHT ANKLE Three views of the right ankle were obtained. There are postoperative changes from fusion of the tibia and talus with a screw plate and multiple screws present. A talocalcaneal fusion also seen. Postoperative changes are also seen in the midfoot. There are moderate to severe degenerative changes. There is a calcaneal spur. There is chronic regularity of the lateral malleolus. There is diffuse soft tissue swelling. IMPRESSION: Postoperative and degenerative change as described with diffuse soft tissue swelling. Reviewed, Interpreted and Dictated by Thom Arango III, MD Transcribed by Bisi León Authenticated and [facility]
--- NOTE | 2021-12-28 16:11 | XR_ITS ---
FINAL REPORT CLINICAL HISTORY: pain FINDINGS: RIGHT FOOT Three views of the right foot demonstrate postoperative changes at the 1st tarsal metatarsal joint, 5th metatarsal and the ankle and rear foot. There are mild and moderate degenerative changes. The soft tissues are unremarkable. IMPRESSION: Postoperative and degenerative changes. Reviewed, Interpreted and Dictated by Thom Arango III, MD Transcribed by Bisi León Authenticated and . [facility]
== END ==
PROVIDERS: PCP Family Medicine; Visit Provider Podiatrist
DX: M25.571 Pain in right ankle and joints of right foot (principal); M25.471 Effusion, right ankle; M14.671 Charcot's joint, right ankle and foot; M19.071 Primary osteoarthritis, right ankle and foot; S90.01XA Contusion of right ankle, initial encounter; Z96.9 Presence of functional implant, unspecified; Z98.890 Other specified postprocedural states
CPT/HCPCS: 73610; 73630; 73650